=== PATIENT | female | born 1990 | race Caucasian/White ===

== ENCOUNTER 2016-06-03 18:36 | Emergency (ER) | payer BC, OTHER ==
[2016-06-03 20:06] VITALS: BP 123/84
--- NOTE | 2016-06-03 20:29 | UC ---
Respiratory Complaint HPI - HPI Summary HPI Summary: 3d cough, sinus pain/pressure/green drainage, mild ST, hoarseness. "I am prone to bronchitis." Little sleep in past 3d because sons are ill and she's working plant operator/shift supervisor. No fever. Exhausted, achey all over. Able to eat. Heavy smoker - History of Current Complaint Chief Complaint: UCGeneralIllness Stated Complaint: COUGH,CONGESTION Time Seen by Provider: 06/03/16 19:51 Hx Obtained From: Patient Hx Last Menstrual Period: 05/15/16 Onset/Duration: Gradual Onset, Lasting Days - 3 Timing: Constant Severity Initially: Mild Severity Currently: Moderate Character: Cough: Productive - green phlegm Aggravating Factors: Recumbent Position Alleviating Factors: Nothing Associated Signs And Symptoms: Positive: Chills, URI, Nasal Congestion, Hoarseness, Sinus Discomfort. Negative: Dyspnea, Fever, Wheezing, Hemoptysis - Risk Factors Pulmonary Embolism Risk Factors: Negative Cardiac Risk Factors: Negative Pseudomonas Risk Factors: Negative Tuberculosis Risk Factors: Negative - Allergies/Home Medications Allergies/Adverse Reactions: Allergies Allergy/AdvReac Type Severity Reaction Status Date / Time Acetaminophen [From Vicodin] Allergy Nausea Verified 06/03/16 20:06 Hydrocodone [From Vicodin] Allergy Nausea Verified 06/03/16 20:06 Topiramate [From Topamax] Allergy Nausea And Verified 06/03/16 20:06 Vomiting Home Medications: Home Medications Lisinopril TAB* [Prinivil TAB 10 MG*] 10 mg PO DAILY 06/03/16 [History Confirmed 06/03/16] PMH/Surg Hx/FS Hx/Imm Hx Endocrine History Of: Denies: Diabetes, Thyroid Disease Cardiovascular History Of: Reports: Hypertension - NO MEDICATION FOR AT THIS TIME Denies: Cardiac Disorders, Pacemaker/ICD Respiratory History Of: Reports: Bronchitis - HX OF - BUT NOT RECENTLY Denies: Asthma Neurological History Of: Reports: Migraine - HX OF- NOW GETS VERY RARELY-PRN TYLENOL FOR Psychological History Of: Reports: Depression - HX OF - NO MEDICATION FOR AT THIS TIME - Surgical History Surgical History: Yes Surgery Procedure, Year, and Place: Left Knee MCL (2009 [place] and 09/2014); C- Section (2012 [facility]) - Family History Known Family History: Positive: Hypertension, Respiratory Disease - asthma - Social History Occupation: Employed Full-time Lives: With Family Alcohol Use: Occasionally Substance Use Type: None Smoking Status (MU): Heavy Every Day Tobacco Smoker Type: Cigarettes Amount Used/How Often: 1/2-1 PPD X 8 YEARS Length of Time of Smoking/Using Tobacco: 8 Years Have You Smoked in the Last Year: Yes Household Exposure Type: Cigarettes - Immunization History Most Recent Influenza Vaccination: yes Review of Systems Constitutional: Negative Skin: Negative Eyes: Negative ENT: Sore Throat, Nasal Discharge Respiratory: Shortness Of Breath, Cough Cardiovascular: Negative Gastrointestinal: Negative Genitourinary: Negative Motor: Negative Neurovascular: Negative Musculoskeletal: Myalgia Neurological: Negative Psychological: Negative All Other Systems Reviewed And Are Negative: Yes Physical Exam Triage Information Reviewed: Yes Appearance: Well-Appearing, No Pain Distress, Well-Nourished Vital Signs: Initial Vital Signs Temp 99.8 F 06/03/16 20:02 Pulse 82 06/03/16 20:02 Resp 16 06/03/16 20:02 BP 123/84 06/03/16 20:02 Pulse Ox 100 06/03/16 20:02 Vital Signs Reviewed: Yes Eye Exam: Normal Eyes: Positive: Conjunctiva Clear ENT: Positive: Hearing grossly normal, Pharyngeal erythema, Nasal congestion, Nasal drainage, TMs normal, Muffled/hoarse voice - hoarse Neck exam: Normal Neck: Positive: Supple, Nontender Respiratory Exam: Normal Respiratory: Positive: Lungs clear, Normal breath sounds, No respiratory distress, No accessory muscle use - wet cough Cardiovascular Exam: Normal Musculoskeletal Exam: Normal Neurological Exam: Normal Psychological Exam: Normal UC Diagnostic Evaluation - Laboratory O2 Sat by Pulse Oximetry: 100 Respiratory Course/Dx - Differential Dx/Diagnosis Differential Diagnosis/HQI/PQRI: Bronchitis, Lower Resp Infection, Sinusitis Provider Diagnoses: URI Discharge - Discharge Plan Condition: Stable Disposition: HOME Prescriptions: Azithromycin TAB* [Zithromax TAB (Z-TIM)*] 250 mg PO .Z-TIM INSTRUCTIONS #6 tab Guaifenesin-Codeine [Cheratussin AC] 1 - 2 teasp PO Q6HR PRN #120 ml MDD 30ml PRN Reason: Cough Pseudoephedrine HCl [Sudafed 12 Hour] 120 mg PO BID PRN #20 tab PRN Reason: Congestion Patient Education Materials: Upper Respiratory Infection (ED) Referrals: MATTHEW Salcedo [Primary Care Provider] -
== END 2016-06-03 20:34 | disposition home or self-care (01) ==
LOC: UCCORT 18:36
DX: J06.9 Acute upper respiratory infection, unspecified (principal); Z88.6 Allergy status to analgesic agent; Z88.8 Allergy status to other drugs, medicaments and biological substances; F17.210 Nicotine dependence, cigarettes, uncomplicated
CPT/HCPCS: 99212; G0463

== ENCOUNTER → 2016-06-10 11:11 | Day surgery (SDC) | payer OTHER ==
[~2016-06-10 11:11] MED LIST: Buffered Lidocaine 1% SYR 3ML* 3 ML/SYR SYRINGE INTRADERM ONE; Buffered Lidocaine 1% SYR 3ML* 3 ML/SYR SYRINGE ONE; Bupivacaine 0.25% EPI 200,000* 30 ML SDV ONE; Bupivacaine 0.25% SDV* 30 ML ONE; Dexamethasone IV* 4 MG/ML 1 ML (4 MG) ONE; Famotidine IV* 10 MG/ML 2 ML (20 mg) IV ONE; Famotidine IV* 10 MG/ML 2 ML (20 mg) ONE; KETAMINE HCL* 50 MG/ML 10 ML VIAL ONE; Ketorolac INJ* 30 MG/ML 1 ML VIAL ONE; Lidocaine 2% MPF* 2 ML VIAL ONE; Midazolam* 1 MG/ML 5 ML VIAL (5 MG) ONE; Morphine INJ* 2 MG/ML 1 ML CARPUJECT IV PRN; Ondansetron INJ* 2 MG/ML VIAL ONE; PROCHLORPERAZINE INJ 5 MG/ML 2 ML VIAL IV PRN; Propofol* 10 MG/ML 20 ML BTL IV PUSH ONE; Scopolamine 1.5 mg* PATCH ONE; Scopolamine 1.5 mg* PATCH TRANSDERM SCH; Scopolamine PATCH Remove* 1 NOTE MISC PATCH OFF SCH; ceFAZolin 2 GM PREMIX (*) 2 GM/50 ML BAG IVPB ONE; fentaNYL* 50 MCG/ML 2 ML VIAL (100 MCG VIAL) IV PRN; fentaNYL* 50 MCG/ML 2 ML VIAL (100 MCG VIAL) ONE
[2016-06-10 18:10] VITALS: BP 134/79
--- NOTE | 2016-06-11 02:59 | OP ---
DATE OF OPERATION: 06/10/16 [facility] DATE OF : [birth year] SURGEON: Darlene Soto MD DEFECT REPAIRER GLASSWARE: RICHAR Huynh. An speech language pathology assistant was needed for the entirety of the case to help with positioning, retraction, and utilized throughout all portions. ANESTHESIOLOGIST: Porter Kim MD ANESTHESIA: General. PRE-OP DIAGNOSIS: Left knee retained symptomatic hardware. POST-OP DIAGNOSIS: Left knee retained symptomatic hardware. OPERATIVE PROCEDURE: Removal of hardware from left knee, 2 screws 4.5 mm fully - threaded screws. COMPLICATIONS: None. ESTIMATED BLOOD LOSS: Minimal. TOURNIQUET TIME: Zero minute. INDICATIONS: Tonia Ponce is a 25-year-old female, who underwent previous extensor realignment. She did well and healed this, but was having symptoms of painful hardware. After she was fully healed and we were assured that it was not something other than that, we decided to remove the screws after obtaining Worker's Comp approval. She has elected to proceed with screw removal. Risks and benefits were discussed at length including, but not limited to bleeding, infection, damage to nerves, vessels, surrounding structures, wound nonhealing, persistent pain, stiffness, need for further surgery, incomplete relief of symptoms, risk of DVT, and risk of anesthesia. She has elected to proceed. DESCRIPTION OF PROCEDURE: The patient was greeted in the preoperative area by the attending surgeon. Correct extremity was marked and consent was confirmed. The patient was then brought back to the operating suite, where she was placed in supine position on the operating table. She then underwent general anesthesia with LMA intubation. After which a nonsterile tourniquet was placed high on the left leg. The knee was examined. She was found to have full range of motion. The left leg was prepped and draped in the usual sterile fashion. After appropriate surgical pause indicating side, site, procedure, and administration of antibiotics; the previous incision was opened again using a 15 blade. The soft tissues were carefully dissected. The first screw was readily apparent and was removed in its entirety. The second screw was more proximal and buried inside the tendon and scar tissue. This was then identified and removed in its entirety. There were no broken fragments left. The wounds were copiously irrigated. A curette was used to debride the screw hole. The tendon was actually closed with 0 Vicryl in an interrupted fashion with buried sutures. The subcutaneous tissues with 2-0 Vicryl and the skin with nylon. Sterile dressings were applied. The wound was injected with 30 cc of 0.25% Marcaine for postoperative pain control. She was awoken from anesthesia and transferred to the PACU in stable condition. POSTOPERATIVE PLAN: She will be weightbearing as tolerated. She will use crutches as needed. She will be discharged on pain medication and antibiotics. DVT prophylaxis was considered, but deferred due to no previous personal or family history. She was advised to stop smoking. I will see the patient back in about 10 to 14 days. [id number]/[facility]PS #: [id number] MTDD
== END | disposition home or self-care (01) ==
LOC: OR 11:11
PROVIDERS: ATTEND Orthopaedic Surgery
DX: T84.84XA Pain due to internal orthopedic prosthetic devices, implants and grafts, initial encounter (principal); Y83.1 Surgical operation with implant of artificial internal device as the cause of abnormal reaction of the patient, or of later complication, without mention of misadventure at the time of the procedure; F17.210 Nicotine dependence, cigarettes, uncomplicated; I10 Essential (primary) hypertension
CPT/HCPCS: 88300; A9270-GY; J0690; J1100; J1885; J2250; J2405; J2704; J3010

== ENCOUNTER → 2016-07-07 15:21 | Day surgery (SDC) | payer BC, OTHER ==
--- NOTE | 2016-07-07 15:05 | HP ---
AMENDED REPORT NOW INCLUDES DATE OF ADMISSION HISTORY AND PHYSICAL: DATE OF ADMISSION: 07/07/16 HISTORY OF PRESENT ILLNESS: Tonia complains of left knee pain. She follows up with me, approximately 3 weeks and 6 days from her left knee removal of hardware from her anterior tibial wound after tibial tubercle osteotomy was done. I last saw her on June 26 when she was about 16 days postop, she had no erythema or warmth to the incision. She did have pain, but it was improving. She states that this morning, she woke up from sleeping and had a lot of knee pain at the surgical site, it is red and warm. She had a low-grade temperature of 99.2. The pain is about 10/10 with walking around. She was not having any pain with weightbearing prior to that. She denies any numbness or tingling. She denies any catching or locking. Again, this is all about the incision, she notes that if she tries to express she sees a small amount of pus from one of the suture portions, but not the incision itself. She denies any other injuries. She denies any fevers or chills. PAST MEDICAL HISTORY: Significant for high blood pressure and borderline diabetes. PAST SURGICAL HISTORY: Significant for gallbladder surgery, left knee tibial tubercle osteotomy, x2 and then recent left knee removal of hardware that was not complicated. MEDICATIONS: Include: 1. Lisinopril. 2. Ibuprofen. ALLERGIES: TOPAMAX and VICODIN. FAMILY HISTORY: Significant for father with mini stroke, mother with high blood pressure, grandmother with diabetes. No problems with anesthesia. SOCIAL HISTORY: She lives with her . She smokes half a pack per day. She drinks alcohol. She has 2 small children. She just lost her job yesterday. REVIEW OF SYSTEMS: A 14-point review of systems is reviewed with the patient and significant for low-grade fevers, no chills, significant pain, swelling, erythema and warmth about the incision. Pain with range of motion, pain with weightbearing. No weight gain or weight loss. No chest pain or shortness of breath. Otherwise, remainder of systems are negative. PHYSICAL EXAMINATION GENERAL: She is in no acute distress. She is well developed, well nourished. She walks with an antalgic gait. HEENT: EOMI. LUNGS: Chest is clear to auscultation bilaterally. HEART: Regular rate and rhythm. No murmurs, rubs, or gallops. ABDOMEN: Soft, nontender. EXTREMITIES: Examination of the left knee demonstrates the incision is well healed, but there is an area of fluctuance and warmth. She is very tender to palpation. A very tiny amount of pus can be extruded from the one of the suture holes, otherwise remainder of the incision is healed. Her calf is soft and nontender. She is able to flex and extend her knee, but is limited due to the pain in the anterior aspect of the tibia. She is sensate to light touch about the first dorsal webspace, medial, lateral, dorsal, and plantar foot. She has 2+ dorsalis pedis pulse. Her calf is soft and nontender. ASSESSMENT AND PLAN: She had hardware removal in early May. She was doing well until today. She started noticing fevers and a lot of pain. At this point, she has an abscess that is just deep to the incision. We will plan for open I and D of the left leg. My partner, Dr. Awan, will take care of this for me. We reviewed the risks and benefits of the surgery including but not limited to bleeding, worsening infection, damage to surrounding vessels and surrounding structures, the wound not healing, persistent pain, need for further surgery, risk of DVT, risk of anesthesia. I am happy to see the patient back next week. I wrote a prescription today for Bactrim, which she will fruit or nut picker as well as Percocet. We will plan for this later today. She last ate at around 8 a.m. and needs at least 8 hours of n.p.o. status. [id number]/[facility] #: [id number] [facility]
[~2016-07-07 15:21] MED LIST changes: -Buffered Lidocaine 1% SYR 3ML* 3 ML/SYR SYRINGE INTRADERM ONE; -Bupivacaine 0.25% EPI 200,000* 30 ML SDV ONE; -Bupivacaine 0.25% SDV* 30 ML ONE; -Dexamethasone IV* 4 MG/ML 1 ML (4 MG) ONE; +DiMENhydriNATE IV* 50 MG/ML VIAL IV PUSH PRN; -Famotidine IV* 10 MG/ML 2 ML (20 mg) IV ONE; -Famotidine IV* 10 MG/ML 2 ML (20 mg) ONE; +HYDROmorphone INJ* 1 MG/ML CARPUJECT SYRINGE ONE; -KETAMINE HCL* 50 MG/ML 10 ML VIAL ONE; +Lidocaine 1% MPF wEPI 200,000* 30 ML SDV ONE; -Lidocaine 2% MPF* 2 ML VIAL ONE; -Morphine INJ* 2 MG/ML 1 ML CARPUJECT IV PRN; +Ondansetron INJ* 2 MG/ML VIAL IV PRN; -PROCHLORPERAZINE INJ 5 MG/ML 2 ML VIAL IV PRN; -Scopolamine 1.5 mg* PATCH ONE; -Scopolamine 1.5 mg* PATCH TRANSDERM SCH; -Scopolamine PATCH Remove* 1 NOTE MISC PATCH OFF SCH; +ceFAZolin 1 GM in Dextrose (*) 2 GM/100 ML BAG IVPB ONE; -ceFAZolin 2 GM PREMIX (*) 2 GM/50 ML BAG IVPB ONE; +diPHENhydraMINE IV* 50 MG/ML 1 ml VIAL (BENADRYL) IV PRN; +oxyCODONE TAB* 5 MG TAB ONE; +oxyCODONE TAB* 5 MG TAB PO PRN
[2016-07-07 16:15] LABS: UR Preg Internal Control QC Line Present
[2016-07-07] MEDS: HYDROmorphone INJ* 1 MG/ML CARPUJECT SYRINGE IV PRN ×5 (18:37→19:04)
[2016-07-07 19:48] VITALS: BP 139/89
--- NOTE | 2016-07-08 14:26 | OP ---
DATE OF OPERATION: 07/07/15 [facility] DATE OF : [birth year] SURGEON: Biju Awan MD STATE FARM AGENT: RICHAR Cedeno ANESTHESIOLOGIST: Dr. Andrew Martni. ANESTHESIA: LMA, local anesthesia. PRE-OP DIAGNOSIS: Left lower leg wound infection. POST-OP DIAGNOSIS: Left lower leg wound infection. OPERATIVE PROCEDURE: Open irrigation/incision and debridement, left lower leg wound. ANTIBIOTICS: 2 g Ancef IV, given after cultures were taken. IV FLUIDS: See anesthesia note. ESTIMATED BLOOD LOSS: Minimal. TOURNIQUET TIME: 32 minutes at 300 mmHg. SPECIMEN: Culture swabs, aerobic and anaerobic taken. IMPLANTS: One drain placed attached to a bulb reservoir. INDICATIONS FOR PROCEDURE: The patient is a 25-year-old woman, 3 weeks and 6 days status post removal of hard-licea from the left lower leg, that had been placed in the proximal tibia in a prior procedure, a tibial tubercle osteotomy procedure by Dr. Darlene Soto. The patient had an uncomplicated postoperative recovery from her tibial tubercle osteotomy. The patient's hardware was prominent and irritated her, as is often the case. Therefore, in early May , Dr. Soto did a removal of hardware procedure, removing 2 screws from her proximal tibia. Uncomplicated recovery from that surgery. The patient presented to Dr. Soto's office for routine followup on July 07, the date of this procedure. The patient presented complaining of some swelling, erythema , and pain, with duration of just 1 day. The patient states that there may have been some red about the incision site for several days prior to that. The patient described some chills and, in the office, had a low-grade temperature of 99.2 degrees Fahrenheit. The patient's exam showed some fluctuance at the inferior aspect of the incision site with skin erythema and tenderness to palpation. It was decided that the patient had an infected wound site and would require irrigation and debridement. The patient opted for surgical management. DESCRIPTION OF PROCEDURE: Preoperative written consent. Operative extremity was marked in the preoperative holding. The patient was taken back to the operating room and placed supine on the operating room table. LMA was placed. A proximal left thigh tourniquet was placed. The left lower extremity was prepped and draped. Surgical time-out was performed. The former left lower leg incision was marked with a pen. Using a 15-blade, I incised through the former incision site. I used this to get through the subcutaneous tissue as well as a pair of scissors with spreading dissection. I encountered a pocket of serous fluid in the deep subcutaneous space. This was just the slightest but murky. I used culture swabs at aerobic and anaerobic on this fluid. I removed all visible stitches from the subcutaneous tissue layer with a rongeur. I probed with finger down to the former screw sites and tibia. Otherwise, the tibial bone itself was nicely covered with deep muscle fascia and fat. The general appearance of the fat and subcutaneous layer was not particularly healthy, but there is no clear purulence. I debrided the subcutaneous tissue and all exposed tissues lightly with a curette. I even did a scrape test with a #10 blade at an angle to remove any diseased tissue from the surface of visible tissue planes. I then used a curette to curette the holes from the former screw sites. No purulence was encountered. There was just bleeding, healthy from bone. Early in this dissection, because the patient had some bleeding in the subcutaneous layer and I did not want to use Bovie electrocautery, I inflated the tourniquet to 300 mmHg. I next irrigated the wound with 6 L of normal saline. I then debrided a little bit more and there appeared to be no other unhealthy tissue that needed to be removed. I then irrigated with an additional 6 L of saline for a total of 12 L of normal saline. I placed a drain , exiting distal and medial to the skin incision. I then closed the incision site with buried simple stitches using PDS 3-0 suture. I closed the skin with Prolene 4-0 suture and a running stitch. I hooked the drain up to a bulb reservoir, 4x4's followed by ABD followed by sterile Webril. This was followed by Bernardino bandages from the foot to the thigh. The bulb syringe was attached to the Bernardino bandage. Tourniquet was elevated with a total tourniquet time being 32 minutes. The patient was awakened and LMA was removed. Just after skin closure and prior to dressing placement, minimal amount, less than 10 cc of local anesthesia, half lidocaine and half Marcaine, were injected into the subcutaneous tissue iraj-incisional. The patient was taken to the PACU. DISPOSITION: The patient will be discharged home when medically stable. The patient will take Percocet as needed for pain control, Bactrim oral antibiotics , and aspirin as previously prescribed by Dr. Soto earlier in the day in clinic. The patient will monitor drain output and empty the reservoir as needed. She was instructed to keep reservoir compressed to ensure good suction. On postoperative day 2, the patient can take down her whole dressing, shower, and then place a new dressing. The patient will call me on my cellphone regarding her drainage on postoperative day 2 to decide if the drain can then be pulled. The patient will follow up with Dr. Soto or me 1 week postoperative for a wound check. [id number]/[facility] #: [id number] MTDD
== END | disposition home or self-care (01) ==
LOC: OR 15:21
PROVIDERS: ATTEND Orthopaedic Surgery
DX: T84.623A Infection and inflammatory reaction due to internal fixation device of left tibia, initial encounter (principal); A49.02 Methicillin resistant Staphylococcus aureus infection, unspecified site; Y83.1 Surgical operation with implant of artificial internal device as the cause of abnormal reaction of the patient, or of later complication, without mention of misadventure at the time of the procedure; F17.210 Nicotine dependence, cigarettes, uncomplicated; I10 Essential (primary) hypertension
CPT/HCPCS: 81025; 87070; 87073; 87077; 87186; 87205; 87640; 87641; A9270-GY; J0690; J1170; J1885; J2001; J2250; J2405; J2704; J3010

== ENCOUNTER 2017-03-08 10:20 | Emergency (ER) | payer BC, OTHER ==
[2017-03-08 11:32] VITALS: BP 130/86
--- NOTE | 2017-03-08 11:36 | UC ---
Respiratory Complaint HPI - HPI Summary HPI Summary: 26 YEAR OLD FEMALE PRESENTS WITH COUGH, NASAL CONGESTION AND RIGHT EAR PAIN. - History of Current Complaint Chief Complaint: UCRespiratory Stated Complaint: RIGHT EAR PAIN,CONGESTION,COUGH Time Seen by Provider: 03/08/17 11:35 Hx Last Menstrual Period: 02/17/17 Onset/Duration: Sudden Onset Severity Initially: Moderate Severity Currently: Moderate Pain Scale Used: 0-10 Numeric - 0 - Allergies/Home Medications Allergies/Adverse Reactions: Allergies Allergy/AdvReac Type Severity Reaction Status Date / Time Acetaminophen [From Vicodin] Allergy Nausea Verified 03/08/17 11:33 Hydrocodone [From Vicodin] Allergy Nausea Verified 03/08/17 11:33 Topiramate [From Topamax] Allergy Nausea And Verified 03/08/17 11:33 Vomiting Tramadol Allergy MAKES HER Verified 03/08/17 11:33 FEEL VERY WEIRD AND SICK PMH/Surg Hx/FS Hx/Imm Hx Previously Healthy: Yes - Surgical History Surgical History: Yes Surgery Procedure, Year, and Place: Left Knee MCL (2009 [place] and ALSO REALIGNMENT 09/2014); (). 06/10/2016 HARDWARE REMOVED 07/2016 MRSA INFECTION LEFT KNEE. TUBAL LIGATION. 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 Review of Systems Constitutional: Negative Skin: Negative Eyes: Negative ENT: Sore Throat, Ear Ache, Nasal Discharge, Sinus Congestion, Sinus Pain/ Tenderness Respiratory: Negative Cardiovascular: Negative Gastrointestinal: Negative Genitourinary: Negative Motor: Negative Neurovascular: Negative Musculoskeletal: Negative Neurological: Negative Psychological: Negative All Other Systems Reviewed And Are Negative: Yes Physical Exam Triage Information Reviewed: Yes Vital Signs: Initial Vital Signs Temp 37.0 C 03/08/17 11:30 Pulse 80 03/08/17 11:30 Resp 16 03/08/17 11:30 BP 130/86 03/08/17 11:30 Pulse Ox 100 03/08/17 11:30 Vital Signs Reviewed: Yes Eye Exam: Normal ENT: Positive: Pharyngeal erythema, Nasal congestion, Nasal drainage Dental Exam: Normal Neck exam: Normal Neck: Positive: 1 Respiratory Exam: Normal Cardiovascular Exam: Normal Abdominal Exam: Normal Musculoskeletal Exam: Normal Neurological Exam: Normal Psychological Exam: Normal Skin Exam: Normal UC Diagnostic Evaluation - Laboratory O2 Sat by Pulse Oximetry: 100 Respiratory Course/Dx - Differential Dx/Diagnosis Provider Diagnoses: SINUS CONGESTION. COUGH. RIGHT EAR PAIN Discharge - Discharge Plan Condition: Stable Disposition: HOME Prescriptions: Amoxicillin/Clavulanate TAB* [Augmentin TAB 875*] 875 mg PO BID #20 tab LoraTADine TAB(NF) [Claritin 10 MG TAB(NF)] 10 mg PO DAILY #30 tab Promethazine-Dm [Promethazine/Dextromethor 6.25-15 mg/5Ml] 1 teasp PO Q8H PRN # 120 ml PRN Reason: Cough Patient Education Materials: Sinusitis (ED) Forms: *Work Release Referrals: No Primary Care Phys,NOPCP [Medical Doctor] -
== END 2017-03-08 11:53 | disposition home or self-care (01) ==
LOC: UCCORT 10:20
DX: R09.81 Nasal congestion (principal); R05 Cough; H92.01 Otalgia, right ear; Z88.6 Allergy status to analgesic agent; Z88.5 Allergy status to narcotic agent; F17.210 Nicotine dependence, cigarettes, uncomplicated
CPT/HCPCS: 99212; G0463

== ENCOUNTER 2017-05-20 11:03 | Emergency (ER) | payer BC ==
[2017-05-20 11:50] VITALS: BP 139/82
[2017-05-20] MEDS ORDERED: LoraTADine TAB(NF) 10 MG TAB (AUTOSUB to CETIRIZINE) PO ONE (12:31)
[2017-05-20] MEDS ORDERED: predniSONE TAB* 10 MG PO ONE (12:32)
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
== END 2017-05-20 12:41 | disposition home or self-care (01) ==
LOC: UCCORT 11:03
DX: L25.9 Unspecified contact dermatitis, unspecified cause (principal); Z72.89 Other problems related to lifestyle; Z72.0 Tobacco use
CPT/HCPCS: 99212; A9270-GY; G0463; J7512

== ENCOUNTER 2017-06-29 09:13 | Emergency (ER) | payer BC ==
[2017-06-29 10:31] VITALS: BP 139/77
[2017-06-29] MEDS ORDERED: Ketorolac INJ* 60 MG/2 ML VIAL IM ONE (10:43)
[2017-06-29] MEDS ORDERED: Ondansetron ODT TAB* 4 MG PO ONE (10:44)
--- NOTE | 2017-06-29 11:27 | UC ---
Eye Complaint HPI - HPI Summary HPI Summary: left eye redness x 1 days + pain, no change in vision , + discharge this morning headaches for the past 4 weeks + nausea , no vomiting - History of Current Complaint Chief Complaint: UCHeadache Stated Complaint: LEFT EYE MIGRAINE Time Seen by Provider: 06/29/17 10:36 Hx Obtained From: Patient Hx Last Menstrual Period: 06/01/17 Onset/Duration: Gradual Onset, Lasting Days - 1, Still Present Timing: Constant Severity Initially: Moderate Severity Currently: Moderate Pain Intensity: 6 Location of Injury: Conjunctiva - left Aggravating Factor(s): Nothing Alleviating Factor(s): Nothing Associated Signs And Symptoms: Positive: Drainage (Purulent) - left eye. Negative: Photophobia, Drainage (Clear), Vision Impairment Bilateral, Vision Impairment Right, Vision Impairment Left, Fever, Swelling - Allergies/Home Medications Allergies/Adverse Reactions: Allergies Allergy/AdvReac Type Severity Reaction Status Date / Time MS Hydrocodone [From Vicodin] AdvReac Nausea Verified 06/29/17 10:26 MS Topiramate [From Topamax] AdvReac Nausea And Verified 06/29/17 10:26 Vomiting MS Tramadol [Tramadol] AdvReac MAKES HER Verified 06/29/17 10:26 FEEL VERY WEIRD AND SICK Home Medications: Home Medications [id number]-Rduqmgir [Excedrin Migraine] 2 tab PO Q6H PRN 06/29/17 [ History Confirmed 06/29/17] PMH/Surg Hx/FS Hx/Imm Hx Previously Healthy: Yes - Surgical History Surgical History: Yes Surgery Procedure, Year, and Place: Left Knee MCL (2009 [facility] and ALSO REALIGNMENT 09/2014); (). 06/10/2016 HARDWARE REMOVED 07/2016 MRSA INFECTION LEFT KNEE. TUBAL LIGATION. 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 Review of Systems Constitutional: Negative Skin: Negative Eyes: Drainage - left eye ENT: Negative Respiratory: Negative Genitourinary: Negative Is Patient Immunocompromised?: No All Other Systems Reviewed And Are Negative: Yes Physical Exam Triage Information Reviewed: Yes Appearance: Well-Appearing, No Pain Distress, Well-Nourished Vital Signs: Initial Vital Signs Temp 98.8 F 06/29/17 10:25 Pulse 80 06/29/17 10:25 Resp 16 06/29/17 10:25 BP 139/77 06/29/17 10:25 Pulse Ox 100 06/29/17 10:25 Vital Signs Reviewed: Yes Eye Exam: Normal Eyes: Positive: Conjunctiva Inflamed - left eye, Discharge - left eye ENT: Positive: Normal ENT inspection, Hearing grossly normal, Pharynx normal Neck exam: Normal Neck: Positive: Supple, Nontender, No Lymphadenopathy Respiratory: Positive: Chest non-tender, Lungs clear, Normal breath sounds Cardiovascular: Positive: RRR, No Murmur, Pulses Normal Abdominal Exam: Normal Abdomen Description: Positive: Nontender, Soft Bowel Sounds: Positive: Present Neurological Exam: Normal Neurological: Positive: Alert Skin Exam: Normal Eye Complaint Course/Dx - Differential Dx/Diagnosis Provider Diagnoses: conjunctivitis. headaches Discharge - Discharge Plan Condition: Stable Disposition: HOME Prescriptions: Sulfacet/PrednisoLONE OPTH.SO* [Blephamide Opth.JUAN LUIS*] 1 drop LEFT EYE Q4H #1 btl Patient Education Materials: Acute Headache (DC), Conjunctivitis (ED) Forms: *Work Release Referrals: No Primary Care Phys,NOPCP [Primary Care Provider] -
== END 2017-06-29 11:26 | disposition home or self-care (01) ==
LOC: UCCORT 09:13
DX: H10.9 Unspecified conjunctivitis (principal); R51 Headache; F17.210 Nicotine dependence, cigarettes, uncomplicated
CPT/HCPCS: 96372; 99212; A9270-GY; G0463; J1885